=== PATIENT | male | born 1965 | race Caucasian/White ===

== ENCOUNTER 2022-04-02 09:30 | Emergency (ER) | payer OTHER, SELFPAY ==
[2022-04-02 09:31] VITALS: BP 123/80; PULSE 102; RESP 18; TEMP 36.8; O2SAT 100; BMI 33.3
--- NOTE | 2022-04-02 09:37 | PC.NURSE ---
ED MD AT BEDSIDE FOR EVALUATION
[2022-04-02 09:38] VITALS: BMI 33.3
--- NOTE | 2022-04-02 09:42 | XR_ITS ---
FINAL REPORT CLINICAL HISTORY: wound, eval for FB FINDINGS: LEFT HAND 3 views of the left hand were obtained. The hand is held in flexion. There is no acute fracture or dislocation. The joint spaces are intact. There is no bony erosion and no periosteal reaction. There is soft tissue swelling over the dorsum of the hand measuring 1 cm. There are two 1 mm densities in the medial hypothenar eminence of uncertain significance. IMPRESSION: Soft tissue swelling along the dorsum of the hand with two 1 mm densities in the medial hypothenar eminence of uncertain significance. Reviewed, Interpreted and Dictated by Carson Godinez MD Transcribed by Kayli Coronel Authenticated and . [facility]
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
--- NOTE | 2022-04-02 09:54 | PC.NURSE ---
PT TO XR
--- NOTE | 2022-04-02 09:56 | PC.NURSE ---
PT RETURNED FROM XR
[2022-04-02 10:31] VITALS: BP 121/86; PULSE 98; RESP 16; TEMP 36.8; O2SAT 99
== END 2022-04-02 10:33 | disposition home or self-care (01) ==
PROVIDERS: Emergency Provider Emergency Medicine; PCP Nurse Practitioner Family
DX: L03.114 Cellulitis of left upper limb (principal); E11.9 Type 2 diabetes mellitus without complications
CPT/HCPCS: 73120; 90471; 90715; 96365; 99284